=== PATIENT | female | born 1940 | race Caucasian/White ===

== ENCOUNTER 2020-01-07 22:00 | Observation (INO) | payer MEDICARE, SELFPAY ==
--- NOTE | ~2020-01-07 | XR_ITS ---
EXAMINATION: XR chest 1V portable EXAM DATE: 01/07/2020 23:25 INDICATION: Shortness of breath. CHF. TECHNIQUE: Portable AP frontal chest x-ray was obtained. There is no prior study for comparison. FINDINGS: There is moderate cardiomegaly. There is moderate hyperinflation. No confluent consolidatio n, pneumothorax or pleural effusion suspected. There are no suspicious marrow signal abnormalities. General There are cholecystectomy clips. IMPRESSION: 1. Moderate cardiomegaly. 2. Moderate hyperinflation Reviewed, dictated and finalized at location G.
--- NOTE | ~2020-01-07 | CT_ITS ---
EXAMINATION: CTA chest PE protocol DATE: 01/08/2020 02:34 INDICATION: Shortness of breath. Elevated d-dimer. TECHNIQUE: Computed tomography angiography (CTA) of the chest was performed with 100 mL Omnipaque-350 intravenous contrast timed to evaluate the pulmonary arteries. Coronal maximum intensity projection 3D-reconstructions were created by the technologist. Automated exposure control and iterative reconst ruction technique were employed. Exam dose: 904.85 mGy-cm total exam DLP. COMPARISON: 01/07/2020 portable AP chest FINDINGS: There is pericardial effusion measuring up to 8 mm inferiorly at 11 mm medially, 3 pradeep s of the apex. There is cardiomegaly. There is coronary artery calcification. There is thoracic aortic calcification but no aneurysm. No hilar or mediastinal mass lesion or lymphadenopathy is detected. There is suboptimal contrast material opacification of the pulmonary arteries; no large central pulmo nary embolus is evident. The peripheral pulmonary arteries are not well demonstrated. Mild dilatation of the main pulmonary artery up to 3.69 cm diameter suggests pulmonary artery hypertension. No pulmonary infiltrate or consolidation is evident. Evaluation of the lungs is limited due to motion . Splenomegaly is noted. Diffuse idiopathic skeletal hyperostosis of the thoracic spine. IMPRESSION: Suboptimal contrast enhancement of the pulmonary arteries; no large central pulmonary em bolus is evident Mild pericardial effusion Cardiomegaly Possible pulmonary artery hypertension Splenomegaly Reviewed, dictated and finalized at Location A. Reviewed, dictated and finalized at location A. IMPRESSION: Suboptimal contrast enhancement of the pulmonary arteries; no larg e central pulmonary embolus is evident Mild pericardial effusion Cardiomegaly Possible pulmonary artery hypertension Splenomegaly
--- NOTE | ~2020-01-07 | XR_ITS ---
EXAMINATION: XR chest 2V DATE: 01/09/2020 12:44 INDICATION: Congestive heart failure. TECHNIQUE: Frontal and lateral views of the chest were obtained. COMPARISON: Chest single view 01/07/2020, CT abdomen and pelvis 01/09/2020 FINDINGS: There are interstitial opacities in the lower lung zones, consistent with mild pulmonary ed ayleen. No pleural effusion or pneumothorax. There is enlargement of the cardiac silhouette. IMPRESSION: 1. Mild pulmonary edema. 2. Enlargement of the cardiac silhouette, likely a combination of cardiomegaly and pericardial effusi on as seen on the prior CT. Reviewed, dictated and finalized at location E. IMPRESSION: 1. Mild pulmonary edema. 2. Enlargement of the cardiac silhouette, likely a combination of cardiomegaly and pericardial effusion as seen on the prior CT.
--- NOTE | ~2020-01-07 | CT_ITS ---
EXAMINATION: CT abdomen pelvis wo con DATE: 01/09/2020 12:44 INDICATION: Elevated serum creatinine. Pericardial effusion. TECHNIQUE: Computed tomography (CT) of the abdomen and pelvis was performed without intravenous contr ast. Automated exposure control and iterative reconstruction technique were employed. Exam dose: 473 .33 mGy-cm total exam DLP. COMPARISON: None. FINDINGS: No consolidation at the lung bases. Cardiomegaly. Mild pericardial effusion. There is prominent splenomegaly; the spleen measures up to 20.5 cm height, with 14 cm being upper ruth its of normal. Status post cholecystectomy. No bile duct dilatation. No hepatic or splenic space-occupying mass lesion is evident. There is diffuse pancreatic atrophy. Up to approximately 1.3 x 2.6 cm nodes are identified in the right peripancreatic area, Normal adrenal glands. There may be some residual contrast material in the kidneys from recent CT pulmonary scan; kidney sto holly are neither confirmed or excluded. Residual contrast material from yesterday's CT pulmonary scan may be an indication of suspected renal insufficiency. No ureteral calculus or hydroureteronephrosis. There is extensive calcification of the abdominal aorta with calcification at the origins of the jen ac and superior mesenteric and renal arteries, especially left renal artery. There is calcification o f iliac arteries. There is no abdominal aortic aneurysm. No periaortic or aortocaval or pelvic lympha denopathy is evident. The urinary bladder is relatively evacuated. Status post hysterectomy. Diverticulosis of the sigmoid colon; no CT evidence of diverticulitis. No bowel obstruction, bowel wa ll thickening, pneumatosis or intraperitoneal free air. Severe degenerative disc disease and mild retrolisthesis noted at L3-4. Moderate degenerative disc di sease at L1-2 and L2-3. IMPRESSION: No evidence of obstructive uropathy. Residual opaque contrast material in the kidneys ma y be related to renal insufficiency Prominent splenomegaly Status post cholecystectomy. Nonspecific peripancreatic lymphadenopathy Diverticulosis of the colon Cardiomegaly Mild pericardial effusion Reviewed, dictated and finalized at Location A. Reviewed, dictated and finalized at location A. IMPRESSION: No evidence of obstructive uropathy. Residual opaque contrast mate rial in the kidneys may be related to renal insufficiency Prominent splenomegaly Status post cholecystectomy. Nonspecific peripancreatic lymphadenopathy Diverticulosis of the colon Cardiomegaly Mild pericardial effusion
[2020-01-07 22:05] VITALS: BP 112/60; PULSE 116; RESP 20; TEMP 36.8; O2SAT 95
--- NOTE | 2020-01-07 22:52 | ECG_ITS ---
Measurements Intervals [place] Rate: 104 P: 18 WA: 170 QRS: -36 QRSD: 120 T: -25 QT: 340 QTc: 449 Interpretive Statements SINUS TACHYCARDIA FREQUENT VENTRICULAR PREMATURE COMPLEXES LEFT AXIS DEVIATION INCOMPLETE LEFT BUNDLE BRANCH BLOCK DELAYED PRECORDIAL R/S TRANSITION BORDERLINE T WAVE ABNORMALITY- INFERIOR LEADS BASELINE ARTIFACT- I, II, III, AVF, V4-V6 ABNORMAL ECG Electronically Signed On 01-08-2020 7:44:14 CDT by Mayank Grossman D.O.
[2020-01-07 23:30] LABS: Hematocrit 46.3 % (35.0-42.0); Hemoglobin 13.8 g/dL (11.7-13.8); Mean Corpuscular HGB Conc 29.8 g/dL (32.0-36.0); Mean Corpuscular Hemoglobin 28.9 pg (27.0-31.0); Mean Corpuscular Volume 97.1 fL (78.0-102.0); Mean Platelet Volume 11.5 fl (9.2-11.8); Platelet Count Result 610 K/mm3 (150-420); Red Blood Count 4.77 M/mm3 (4.20-5.40); Red Cell Distribution Width 24.4 % (11.6-14.4)
[2020-01-07 23:37] LABS: INR 1.2; Partial Thromboplastin Time 34.6 SEC (22.3-31.6); Prothrombin Time 12.1 Seconds (9.64-11.0)
[2020-01-07 23:39] LABS: D Dimer 1.52 mg/L (0.19-0.50)
[2020-01-07 23:44] LABS: Alanine Aminotransferase 33 U/L (14-59); Albumin Level 3.7 g/dL (3.4-5.0); Alkaline Phosphatase 133 U/L (46-116); Anion Gap 12.2 mmol/L (7-16); Aspartate Amino Transferase 32 U/L (15-37); Bilirubin,Total 1.2 mg/dL (0.00-1.00); Blood Urea Nitrogen 42 mg/dL (7-18); Calcium 8.5 mg/dL (8.5-10.1); Carbon Dioxide 27 mmol/L (21-32); Chloride 101 mmol/L (98-108); Estimated CRCL calculation 26 ml/min; Estimated Glomerular Filt Rate 36; Glucose 161 mg/dL (70-99); Osmolality Calculated 295 mOsm/kg (285-295); Potassium 4.2 mmol/L (3.5-5.1); Sodium 136 mmol/L (136-145); Total Protein 6.7 g/dL (6.4-8.2)
[2020-01-07 23:45] LABS: BNP 1040 pg/mL (0-100); Troponin I < 0.02 ng/mL (0.00-0.056)
[2020-01-07 23:53] LABS: Band Neutrophils Percent 3 % (0-6); Basophils Percent Manual 0 % (0-1); Eosinophils Absolute Manual 0.56 K/mm3 (0.02-0.5); Eosinophils Percent Manual 4 % (1-6); Lymphocytes Absolute Manual 0.98 K/mm3 (1.1-4.5); Lymphocytes Percent Manual 7 % (18-44); Metamyelocytes Percent 2 %; Monocytes Absolute Manual 0.28 K/mm3 (0.1-0.90); Monocytes Percent Manual 2 % (3-9); Myelocytes Percent 2 %; Neutrophils Absolute Manual 11.62 K/mm3 (1.7-7.2); Neutrophils Percent Manual 80 % (46-73); Total Cells Counted 100
[2020-01-07 23:54] LABS: Platelet Estimate Increased (Adequate)
[2020-01-08] VITALS (13 sets, daily range): BP systolic 97–113; BP diastolic 43–80; PULSE 76–114; RESP 18–20; TEMP 36.4–37.5; O2SAT 92–96; BMI 25.6
--- NOTE | 2020-01-08 00:14 | ED.SOB ---
HPI - SOB/Dyspnea General Chief Complaint: Upper Respiratory Infection Stated Complaint: coughing, trouble breathing Source: patient and family (daughter, STEPHON, Mery Hopkins) Mode of arrival: EMS Limitations: no limitations History of Present Illness HPI Narrative: 79 y.o. with hx of CHF, HTN, Type 2 DM, polycythemia vera, gout is visiting her daughter from [facility]. She presents with a cough and SOB for months. Seen in office 3 days ago. Started on Augmentin. Her SOB has worsened since then. Two days ago she stopped Lasix 40 mg daily because she thought it would help with her gout. She has a long hx. of orthopnea, but it has been worse x 3 days, she sleeps sitting up. She has not had increased urination at night (about every 3 hours). Her chronic pedal edema has not recently worsened. She denies chest, neck, arm pain. She last saw her miller supervisor, Dr. Sony Henry in [place], over 6 months ago. She has had problems with swelling, redness and pain in both feet for the past 6 weeks attributed to gout. She has polycythemia vera, followed by Dr. Grissom in [facility]. She and her daughter, STEPHON, were both very clear she is not to be resuscitated. Related Data Home Medications Medication Instructions Recorded Confirmed allopurinol 300 mg PO DAILY 01/07/20 01/07/20 aspirin [Aspir-81] 81 mg PO DAILY 01/07/20 01/07/20 bisoprolol-hydrochlorothiazide 1 tablet PO DAILY 01/07/20 01/07/20 colchicine 0.6 mg PO DAILY 01/07/20 01/07/20 furosemide 40 mg PO DAILY 01/07/20 01/07/20 glimepiride 2 mg PO DAILY 01/07/20 01/07/20 potassium chloride 10 meq PO DAILY 01/07/20 01/07/20 Allergies Allergy/AdvReac Type Severity Reaction Status Date / Time morphine Allergy Unknown Verified 03/18/16 10:55 Sulfa (Sulfonamide Allergy Unknown Verified 03/18/16 10:55 Antibiotics) Review of Systems Constitutional: Constitutional: Denies chills and Denies fever(s) Eyes: Eyes: Denies change in vision ENT: Denies dizziness and Denies sore throat Cardiovascular: Cardiovascular: Reports no additional cardiovascular complaints Respiratory: Respiratory: Reports cough, Reports dyspnea and Reports wheezing Gastrointestinal: Gastrointestinal: Denies abdominal pain, Reports diarrhea (3 days ago only. ), Denies nausea and Denies vomiting Genitourinary: Genitourinary: Denies dysuria Musculoskeletal: Comments: c/o pain in all of her joints. Her main complaint is bilateral dorsal feet pain. Integumentary/Breasts: Skin/Breast: Denies rash Psychiatric: Psychiatric: Denies depression Allergic/Immunologic: Allergic/Immunologic: Reports wheezing [facility] Past Medical History Medical History (Updated 01/08/20 @ 04:04 by Steven Presley MD) CHF (congestive heart failure) Gout HTN (hypertension) Polycythemia vera Splenomegaly Type 2 diabetes mellitus Social History Social History Smoking packs per day: 3 Smoking cigarettes per day: 60.0 Years smoked: 30 Smoking pack-years: 90.00 Smoking status: Former smoker Tobacco type: cigarettes and cigars Second hand tobacco smoke exposure: Yes Smoking end date: 06/16/85 Alcohol intake: never Substance use: never Gender identity (if verbalized by the patient): Female Sexual Orientation (if Verbalized by the Patient): Straight or Heterosexual Spiritual care concerns: No Exam Const: General: alert Orientation/consciousness: patient oriented x3 HENMT: Head: normal to inspection Mouth: Yes Normal oral and palatal mucosa present Eyes: Conjunctivae: conjunctivae normal Neck: Neck: no lymphadenopathy Chest: Chest palpation & inspection: normal inspection of the chest Resp: Effort & Inspection: no use of accessory muscles Auscultation: rales, wheezes and diminished lung sounds Cardio: Jugular venous distension: no JVD Palpation: no palpable S3 Rate: regular rate Rhythm: regular rhythm and other (frequent extra beats) Heart sounds: S1 normal heart so
[2020-01-08 02:14] LABS: Add Urine Microscopic? YES; Appearance Urine Cloudy (Clear); Bilirubin Urine 1+ (Negative); Blood Urine Negative (Negative); Color Urine Yellow (Yellow); Glucose Urine UA Negative (Negative); Ketones Urine Trace (Negative); Leukocyte Esterase Ur 2+ (Negative); Nitrate Urine Negative (Negative); Protein Urine Trace (Negative); Specific Grav Ur 1.015 (1.010-1.020); Urobilinogen Urine 0.2 mg/dL (0.2-1.0); pH Urine 5.5 (5.0-8.0)
[2020-01-08 02:21] LABS: Bacteria Urine 3+ /hpf; Budding Yeast Urine Present /hpf; RBC Urine 0-2 /hpf (0-2); Squamous Epithelial Cell Urine Moderate /hpf (Few); WBC Urine 31-50 /hpf (0-3)
[2020-01-08 03:40] LABS: Magnesium 1.9 mg/dL (1.8-2.4)
--- NOTE | 2020-01-08 03:55 | ADMGEN ---
This patient, Eva Rasheed, was admitted to 2nd Floor Room 201-1. Patient/family oriented to hospital policies and general routines including ID bracelet, bed and alarms, visiting hours, pain management, procedures, bathroom and other care routines, personal items, smoking policy, room service/diet, and visiting hours. Valuables list has been completed. Information on how to activate the Rapid Response Team has been discussed. Patient/Family are encouraged to report perceived risks to care and to ask questions if they do not understand what they are told or what they should do.
[2020-01-08] MEDS: FUROSEMIDE INJ 40 MG/4 ML VIAL IV PUSH (04:41)
[2020-01-08] MEDS: ALBUTEROL SULFATE (*SP) INHALER 2 PUFF INHALATION ×4 (06:26→20:42)
--- NOTE | 2020-01-08 07:46 | PM.IMHP ---
H&P: HPI History of Present Illness Chief complaint: coughing, trouble breathing Narrative: Eva Rasheed is a 79 year old female admitted yesterday evening in the ER due to shortness of breath, dyspnea, upper respiratory infection, cough, trouble breathing Eva lives in [place], [place] but has been feeling ill with a cough for a few months and was visiting her daughter here in [place]. She was in [facility] office 3 days ago, started on Augmentin. But her SOB has worsened since then. She has a long hx. of orthopnea, but it has been worse for the last 3 days, she sleeps sitting up. Then two days ago, she stopped Lasix 40 mg daily because she thought it would help with her gout. Her chronic pedal edema has not recently worsened per patient. She denied chest, neck, arm pain. She last saw her assistant professor in family studies, Dr. Sammy [facility] of [facility] in [place], over 6 months ago , and stated that she felt like she had an appointment soon with him. She has polycythemia vera, followed by Dr. Grissom in [facility]. She has had problems with swelling, redness and pain in both feet for the past 6 weeks attributed to gout. She has a hx of CHF, HTN, Type 2 DM, polycythemia vera, gout. Her admitting Chest x-ray showed moderate cardiomegaly. There is moderate hyperinflation. Then her CT angio of the chest completed this morning around 2:00 a.m. shows moderate cardiomegaly and moderate coronary calcification. There is a pericardial effusion measuring up to 8 mm inferiorly and 11 mm medially and 3 mm at the apex. The thoracic aorta is mildly calcified but non dilated. There is no aneurysm or dissection. No large central pulmonary emboli are visible. There is mild dilation of the main pulmonary artery measuring 3.3 cm suggesting pulmonary artery hypertension. Lungs are well inflated and clear. No focal infiltrate or consolidation is seen. No pneumothorax or pleural fluid collection is identified. This was taken from the report by the radiologist Davon Hubbard MD. Today upon examination of the patient, she states she is feeling better than she did when she was admitted yesterday. She feels that she is breathing better and coughing a lot less than she did yesterday. Ordered incentive spirometry. She states that she wears a mask everywhere she goes, and rarely leaves the house. She has her son-in-law do her grocery shopping for her and her daughter also helps her. Eva reports that she was having 99 ? F fevers at home, recorded on a thermometer. Her urinalysis showed evidence of a urinary tract infection. She was started on a low-dose daily Levaquin dose in the ED. Her BNP was elevated at 1040. Due to her renal insufficiency with a creatinine of 1.4 to admission plus the fact that we have are giving her Lasix for better diuresis, I will discontinue her hydrochlorothiazide. She was given 40 mg of IV Lasix in the ED. Ordered strict I/Os and daily weights. She did smoke approximately 3-4 packs a day until she quit smoking in 1970. She saw a accountant bookkeeper many many years ago but has not been to see one recently or within the last year. She stated that she saw a Automotive General Sales Manager years ago due to having asthma. When I asked her if she had a history of having allergies, she stated that she was probably allergic to her house and that since it was over 100 years old that was probably full of mold. We will order a home O2 oxygen study prior to discharge. With her evidence of hyperinflation, history of smoking, and her history of asthma, she likely has uncontrolled COPD as well as having uncontrolled CHF. Review of Systems Review of Systems: All systems reviewed & are unremarkable except as noted in HPI and below Constitutional: Constitutional: Reports as per HPI, Denies chills, Reports difficulty sleeping ( Cannot lay flat or sleep lying down) and Denies fever(s) Eyes: Eyes: Reports as per HPI and Denies change in vision ENT: R
[2020-01-08] MEDS: COLCHICINE 0.6 MG TABLET PO (09:40)
[2020-01-08] MEDS: METOPROLOL TARTRATE 25 MG TABLET 12.5 MG PO ×2 (09:40→20:42)
[2020-01-08] MEDS: allopurinoL 300 MG TABLET PO (09:40)
[2020-01-08] MEDS: ASPIRIN 81 MG ENTERIC TABLET PO (09:40)
[2020-01-08] MEDS: GLIMEPIRIDE 2 MG TABLET PO (09:40)
[2020-01-08] MEDS: ENOXAPARIN 30 MG/0.3 ML SYRINGE SUB-Q (09:41)
[2020-01-08] MEDS: POTASSIUM CHLORIDE 10 MEQ TABLET PO (09:41)
[2020-01-08] MEDS: LORATADINE 10 MG TABLET PO (14:12)
[2020-01-08 14:24] LABS: Hematocrit 42.4 % (35.0-42.0); Hemoglobin 12.9 g/dL (11.7-13.8); Mean Corpuscular HGB Conc 30.4 g/dL (32.0-36.0); Mean Corpuscular Hemoglobin 29.2 pg (27.0-31.0); Mean Corpuscular Volume 95.9 fL (78.0-102.0); Mean Platelet Volume 11.6 fl (9.2-11.8); Platelet Count Result 578 K/mm3 (150-420); Red Blood Count 4.42 M/mm3 (4.20-5.40); Red Cell Distribution Width 24.6 % (11.6-14.4); White Blood Count 11.8 K/mm3 (4.8-10.8)
[2020-01-08 14:40] LABS: Anion Gap 12.8 mmol/L (7-16); Blood Urea Nitrogen 43 mg/dL (7-18); Calcium 8.7 mg/dL (8.5-10.1); Carbon Dioxide 30 mmol/L (21-32); Chloride 101 mmol/L (98-108); Estimated CRCL calculation 23 ml/min; Estimated Glomerular Filt Rate 32; Glucose 139 mg/dL (70-99); Osmolality Calculated 300 mOsm/kg (285-295); Potassium 4.8 mmol/L (3.5-5.1); Sodium 139 mmol/L (136-145)
[2020-01-08] MEDS: IPRATROPIUM 0.5 MG/ALBUTEROL SULFATE 2.5 MG AMPUL.NEB 3 ML INHALATION (15:16)
[2020-01-08] MEDS: methylPREDNISolone SOD SUCC 125 MG VIAL 60 MG IV PUSH (15:16)
[2020-01-08] MEDS: FUROSEMIDE 40 MG TABLET PO (15:17)
[2020-01-08 20:54] LABS: Glucose Point of Care 123 (65-105)
[2020-01-08 20:54] LABS: Glucose Point of Care 237 (65-105)
[2020-01-09] VITALS (8 sets, daily range): BP systolic 86–113; BP diastolic 37–58; PULSE 74–115; RESP 18–20; TEMP 35.9–36.8; O2SAT 95–98
[2020-01-09] MEDS: ALBUTEROL SULFATE (*SP) INHALER 2 PUFF INHALATION (05:58)
--- NOTE | 2020-01-09 06:01 | PC.NURSE ---
Patient states that at about 0100 she ambulated to the bathroom and had a large BM.
[2020-01-09 06:55] LABS: Hematocrit 41.5 % (35.0-42.0); Hemoglobin 12.5 g/dL (11.7-13.8); Mean Corpuscular HGB Conc 30.1 g/dL (32.0-36.0); Mean Corpuscular Hemoglobin 28.9 pg (27.0-31.0); Mean Corpuscular Volume 95.8 fL (78.0-102.0); Platelet Count Result 516 K/mm3 (150-420); Red Blood Count 4.33 M/mm3 (4.20-5.40); Red Cell Distribution Width 24.4 % (11.6-14.4); White Blood Count 10.9 K/mm3 (4.8-10.8)
[2020-01-09 07:09] LABS: Anion Gap 16.2 mmol/L (7-16); Blood Urea Nitrogen 57 mg/dL (7-18); Calcium 8.8 mg/dL (8.5-10.1); Carbon Dioxide 25 mmol/L (21-32); Chloride 100 mmol/L (98-108); Estimated CRCL calculation 18 ml/min; Estimated Glomerular Filt Rate 23; Glucose 169 mg/dL (70-99); Osmolality Calculated 301 mOsm/kg (285-295); Potassium 5.2 mmol/L (3.5-5.1); Sodium 136 mmol/L (136-145)
[2020-01-09 07:11] LABS: BNP 1680 pg/mL (0-100)
[2020-01-09 07:15] LABS: D Dimer 0.94 mg/L (0.19-0.50)
[2020-01-09 07:45] LABS: Bilirubin,Total 0.7 mg/dL (0.00-1.00)
[2020-01-09 08:30] LABS: Glucose Point of Care 168 (65-105)
[2020-01-09 09:11] LABS: Creatine Kinase 21 U/L (26-192)
[2020-01-09 09:14] LABS: Troponin I < 0.02 ng/mL (0.00-0.056)
--- NOTE | 2020-01-09 09:17 | ECG_ITS ---
Measurements Intervals [place] Rate: 84 P: 52 FL: 163 QRS: 50 QRSD: 122 T: 124 QT: 382 QTc: 454 Interpretive Statements SINUS RHYTHM VENTRICULAR PREMATURE COMPLEX INCOMPLETE LEFT BUNDLE BRANCH BLOCK DELAYED PRECORDIAL R/S TRANSITION ST-T WAVE ABNORMALITY IN HIGH LATERAL LEADS- CONSIDER ISCHEMIA ABNORMAL ECG Electronically Signed On 01-09-2020 14:55:01 CDT by Mayank Grossman D.O.
--- NOTE | 2020-01-09 09:19 | PM.IMPN ---
Subjective Date/time seen: 01/09/20 09:19 Objective Data Vital Signs Vital Signs: Vital Signs - 24 hr 01/08/20 09:40 01/08/20 16:00 01/08/20 20:39 Temperature 36.9 C 36.8 C Pulse Rate 78 114 H 105 H Respiratory Rate 20 18 Blood Pressure 97/43 L 113/57 L Pulse Oximetry 95 94 01/08/20 23:49 Temperature 36.4 C Pulse Rate 76 Respiratory Rate 20 Blood Pressure 97/44 L Pulse Oximetry 93 Intake/Output Intake/Output: Intake & Output 01/06/20 01/07/20 01/08/20 01/09/20 23:59 23:59 23:59 23:59 Intake Total 1230 75 Output Total 965 Balance 265 75 Meds/Results Medications: Active Medications Generic Name Dose Route Start Last Admin Trade Name Freq PRN Reason Stop Dose Admin Albuterol 2 puff 01/09/20 09:03 Proventil Hfa INHALATION QIDRT PRN Shortness Of Breath Aspirin 81 mg 01/08/20 09:00 01/08/20 09:40 Aspirin Ec PO 81 mg DAILY [facility] Administration Enoxaparin Sodium 30 mg 01/08/20 09:00 01/08/20 09:41 Lovenox SUB-Q 30 mg DAILY [facility] Administration Levalbuterol HCl 0.63 mg 01/09/20 09:05 Xopenex 0.63 Mg/3 Ml INHALATION Q6HRT [facility] Levofloxacin 250 mg 01/08/20 09:00 01/08/20 09:41 Levaquin Tab PO 250 mg DAILY [facility] Administration Loratadine 10 mg 01/08/20 10:15 01/08/20 14:12 Claritin PO 10 mg QAM [facility] Administration Metoprolol Tartrate 12.5 mg 01/08/20 09:00 01/08/20 20:42 Lopressor PO 12.5 mg Q12HR [facility] Administration Tiotropium [place] 1 cap 01/08/20 10:20 01/08/20 14:12 Spiriva INHALATION 1 cap QAM [facility] Administration Radiology Results: ITS Impressions Chest X-Ray 01/07/20 23:48 IMPRESSION: 1. Moderate cardiomegaly. 2. Moderate hyperinflation Chest CTA 01/08/20 13:39 IMPRESSION: Suboptimal contrast enhancement of the pulmonary arteries; no large central pulmonary embolus is evident Mild pericardial effusion Cardiomegaly Possible pulmonary artery hypertension Splenomegaly Labs Labs: Laboratory Results - last 24 hr 01/08/20 01/08/20 01/08/20 14:16 14:16 14:16 WBC 11.8 H RBC 4.42 Hgb 12.9 Hct 42.4 H MCV 95.9 MCH 29.2 MCHC 30.4 L RDW 24.6 H Plt Count 578 H MPV 11.6 D-Dimer Sodium 139 Potassium 4.8 Chloride 101 Carbon Dioxide 30 Anion Gap 12.8 BUN 43 H Creatinine 1.58 H Estim Creat Clear Calc 23 Estimated GFR 32 L Glucose 139 H POC Capillary Glucose Calculated Osmolality 300 H Uric Acid 6.0 Calcium 8.7 Magnesium Total Bilirubin Total Creatine Kinase CK-MB (CK-2) Troponin I B-Natriuretic Peptide 01/08/20 01/08/20 01/09/20 17:06 20:48 06:47 WBC 10.9 H RBC 4.33 Hgb 12.5 Hct 41.5 MCV 95.8 MCH 28.9 MCHC 30.1 L RDW 24.4 H Plt Count 516 H MPV 11.0 D-Dimer Sodium Potassium Chloride Carbon Dioxide Anion Gap BUN Creatinine Estim Creat Clear Calc Estimated GFR Glucose POC Capillary Glucose 123 237 Calculated Osmolality Uric Acid Calcium Magnesium Total Bilirubin Total Creatine Kinase CK-MB (CK-2) Troponin I B-Natriuretic Peptide 01/09/20 01/09/20 01/09/20 06:47 06:47 06:47 WBC RBC Hgb Hct MCV MCH MCHC RDW Plt Count MPV D-Dimer Sodium 136 Potassium 5.2 H Chloride 100 Carbon Dioxide 25 Anion Gap 16.2 H BUN 57 H Creatinine 2.09 H Estim Creat Clear Calc 18 Estimated GFR 23 L Glucose 169 H POC Capillary Glucose Calculated Osmolality 301 H Uric Acid Calcium 8.8 Magnesium 2.0 Total Bilirubin Total Creatine Kinase CK-MB (CK-2) Troponin I B-Natriuretic Peptide 1680 H 01/09/20 01/09/20 01/09/20 06:47 06:47 06:48 WBC RBC Hgb Hct MCV MCH MCHC RDW Plt Count MPV D-Dimer 0.94 H* Sod[place]
[2020-01-09] MEDS: FUROSEMIDE INJ 40 MG/4 ML VIAL 80 MG (10:00)
[2020-01-09] MEDS: FUROSEMIDE INJ 100 MG/10 ML VIAL 60 MG IV PUSH (10:00)
[2020-01-09] MEDS: METOPROLOL TARTRATE 25 MG TABLET 12.5 MG PO (10:02)
[2020-01-09] MEDS: LORATADINE 10 MG TABLET PO (10:02)
[2020-01-09] MEDS: ASPIRIN 81 MG ENTERIC TABLET PO (10:02)
[2020-01-09] MEDS: ENOXAPARIN 30 MG/0.3 ML SYRINGE SUB-Q (10:06)
[2020-01-09 11:35] LABS: Glucose Point of Care 230 (65-105)
[2020-01-09 12:43] LABS: Anion Gap 15.2 mmol/L (7-16); Blood Urea Nitrogen 62 mg/dL (7-18); Calcium 8.8 mg/dL (8.5-10.1); Carbon Dioxide 25 mmol/L (21-32); Chloride 98 mmol/L (98-108); Estimated CRCL calculation 15 ml/min; Estimated Glomerular Filt Rate 18; Glucose 188 mg/dL (70-99); Osmolality Calculated 300 mOsm/kg (285-295); Potassium 4.2 mmol/L (3.5-5.1); Sodium 134 mmol/L (136-145)
[2020-01-09 12:56] LABS: Creatine Kinase 23 U/L (26-192)
[2020-01-09 13:00] LABS: Troponin I < 0.02 ng/mL (0.00-0.056)
--- NOTE | 2020-01-09 15:01 | PM.DS ---
DS: Admitting Diagnosis Admitting Diagnosis Admitting Diagnosis: Other specified abnormal findings of blood chemistry DS: Discharge Diagnosis Discharge Diagnosis (1) Elevated d-dimer: Code(s): R79.89 - Other specified abnormal findings of blood chemistry Status: Acute Assessment and Plan: D-dimer was 1.52 at ER admission decreased to 0.94 today. SOB and Dyspnea has improved. tolerating room oxygen at this time with spO2 92-95% EKG repeated, conduction delay in leads III, no ST elevation or depression or acute concerns at this time. CTA Ruled out pulmonary embolism no sign of DVT upon examination, no leg pain, no swelling, no redness unable to complete ECHO or any venous Dopplers due to ultrasound not available on Friday or Friday elevated D-dimer may be related to her allopurinol and colchicine dosing, BOTH discontinued. (2) COPD (chronic obstructive pulmonary disease): Code(s): J44.9 - Chronic obstructive pulmonary disease, unspecified Status: Acute Assessment and Plan: history of asthma, smoking, with hyperinflation on chest x-ray COPD may be chronic but untreated No evidence of COVID: Dry cough, no fevers, no pneumonia or pleural effusions on CTA chest or on CXRs. started on albuterol inhaler q.i.d., Spiriva inhaler, and Xopenex Nebulizer txs. patient would benefit from returning to and following up with a mulcher operator CT scan and chest x-ray results discussed , no evidence of atelectasis/pleural effusions/pneumonia. pulmonary toilet and incentive spirometry encouraged ordered 60 mg of methylprednisone IV x1 - improved decrease in cough after that. on low dose daily Levaquin orally - renal adjusted dose (3) Urinary tract infection: Qualifiers: Hematuria presence: without hematuria Urinary tract infection type: acute cystitis Qualified Code(s): N30.00 - Acute cystitis without hematuria Code(s): N39.0 - Urinary tract infection, site not specified Status: Acute Assessment and Plan: urinalysis showed UTI with 2+ leukocytes in the urine, 30-50 white blood cell count in the urine, 3+ bacteria in the urine, yeast present in the urine. urine culture pending blood cultures x 2 show no growth on low-dose daily Levaquin orally - renal adjusted dose monitoring white blood cell count was 14, improved to 11.8, then further improved to 10.9 today patient stated she was having fevers of 99 ? F at home, no fevers since her admission to hospital, for the past 48 hours. encourage oral hydration to improve barajas catheter placed today do to no urine output. monitor renal function through lab work, creatinine currently 1.42 and low GFR 36 (4) Gout: Code(s): M10.9 - Gout, unspecified Status: Acute Assessment and Plan: stopped patient's allopurinol and colchicine dosing will need to discuss with patient how long she has been taking colchicine as that should only be for short course of acute gout treatment, using low dose allopurinol as a daily maintenance to keep the gout controlled. monitor renal function uric acid level WNL, checking ESR and CRP gout seems to be under control when patient examined, no inflammation or redness noted (5) Type 2 diabetes mellitus: Code(s): E11.9 - Type 2 diabetes mellitus without complications Status: Acute Assessment and Plan: A.c. HS glucose checks continue home dosing of glimepiride Glucose levels are currently controlled and less than 150 at this time will continue her sodium controlled diet, no changes to diabetic diet yet at this time. (6) CHF (congestive heart failure): Qualifiers: Heart failure chronicity: acute Heart failure type: unspecified Qualified Code(s): I50.9 - Heart failure, unspecified Code(s): I50.9 - Heart failure, unspecified Status: Acute Assessment and Plan: Elevated CK-MB 43.60, total CK is 23, troponins x3 negati
[2020-01-09] MEDS: LACTATED RINGERS 500 ML 250 ML IV CONT (15:20)
--- NOTE | 2020-01-10 02:14 | PM.EVENT ---
Event Note Event Note Event Note: For 01/08: I have reviewed the chart and examined the patient. I discussed the patient's care with A Adriano GÓMEZ and agree with her assessment and plan.
== END 2020-01-09 17:15 | disposition short-term general hospital (02) ==
LOC: CHSED 22:08 → CHS2ND 01-08 03:38
PROVIDERS: Nurse Practitioner; Admitting Provider Family Medicine; Emergency Provider Family Medicine; Visit Provider Family Medicine
DX: I11.0 Hypertensive heart disease with heart failure (principal); I50.9 Heart failure, unspecified; N39.0 Urinary tract infection, site not specified; N17.9 Acute kidney failure, unspecified; R79.89 Other specified abnormal findings of blood chemistry; I95.9 Hypotension, unspecified; E11.9 Type 2 diabetes mellitus without complications; M10.9 Gout, unspecified; D45 Polycythemia vera; J44.9 Chronic obstructive pulmonary disease, unspecified; Z87.891 Personal history of nicotine dependence
CPT/HCPCS: 36415; 71045; 71046; 71275; 74176; 80048; 80053; 81001; 82247; 82550; 82553; 83605; 83735; 83880; 84484; 84550; 85025; 85027; 85380; 85610; 85730; 87040; 87070; 87077; 87086; 87088; 87205; 93005; 96361; 96372; 96374; 96375; 96376; 99285; A9270; G0378; J1650; J1940; J2930; J7120; Q9965